=== PATIENT | male | born 1955 | race Caucasian/White ===

== ENCOUNTER → 2018-08-04 | Outpatient (CLI) | payer MEDICARE, BC | LOC: LAB 10:51 | PROVIDERS: ATTEND Urology | DX: R97.20 Elevated prostate specific antigen [PSA] (principal) | CPT/HCPCS: 36415; 84154 ==

== ENCOUNTER → 2018-10-26 | Outpatient (CLI) | payer MEDICARE, BC | LOC: LAB 14:30 | PROVIDERS: ATTEND Urology | DX: R97.20 Elevated prostate specific antigen [PSA] (principal) | CPT/HCPCS: 36415; 84153; 84154 ==